=== PATIENT | male | born 1945 | race Caucasian/White ===

== ENCOUNTER 2016-08-25 08:28 | Emergency (ER) | payer MEDICARE ==
[2016-08-25 08:32] VITALS: BP 136/69
[2016-08-25] MEDS ORDERED: Ibuprofen TAB* 800 MG PO ONE (09:05)
[2016-08-25] MEDS ORDERED: Cyclobenzaprine TAB* 10 MG PO ONE (09:06)
--- NOTE | 2016-08-25 09:16 | ED ---
Upper Extremity Pain - HPI Summary HPI Summary: Pt here with acute on chronic Rt shoulder pain. H/o [place] [address] Flores. Had a repeat surgery after. Has had chronic pain here. 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 He enjoys wood working but denies overuse as welll as recent injury, fall, etc. Notes he was simply sitting watching TV when he noticed his Rt side spasming from his neck to his wrist. Denies numbness, tingling, weakness but hurts worse w/ elbow flexion and shoulder abduction/flexion. Tried 400mg ibuprofen at 400 today w/ no relief. Denies fever, chills, [place], neck pain, N/V/D, CP, SOB. Eating and drinking well. Reports he had a routine check up with PCP recently and was told everything looks good. - History of Current Complaint Chief Complaint: EDExtremityUpper Stated Complaint: RIGHT SHOULDER INJURY Time Seen by Provider: 08/25/16 08:47 Hx Obtained From: Patient, Family/Absorption Operator - female family member - Allergies/Home Medications Allergies/Adverse Reactions: Allergies Allergy/AdvReac Type Severity Reaction Status Date / Time Sulfa Drugs Allergy Unknown Unknown Verified 07/14/13 14:34 Reaction Details Home Medications: Home Medications Aspirin EC Low Dose* [Ecotrin EC Low Dose 81 MG*] 81 mg PO DAILY 08/25/16 [ History Confirmed 08/25/16] Atenolol TAB* [Tenormin TAB* 25 MG] 25 mg PO DAILY 08/25/16 [History Confirmed 08/25/16] Atorvastatin* [Lipitor*] 40 mg PO DAILY 08/25/16 [History Confirmed 08/25/16] Ibuprofen TAB* [Advil TAB*] 400 mg PO Q6H PRN 08/25/16 [History Confirmed ] Ramipril CAP* [Altace CAP*] 5 mg PO DAILY 08/25/16 [History Confirmed 08/25/16] PMH/Surg Hx/FS Hx/Imm Hx Previously Healthy: Yes Endocrine/Hematology History: Denies: Hx Anticoagulant Therapy, Hx Blood Disorders, Hx Diabetes, Hx Thyroid Disease Cardiovascular History: Reports: Hx Hypercholesterolemia - controlled on statin , Hx Hypertension - controlled on atenolol, ramipril, Other Cardiovascular Problems/Disorders - CABG 2003 Denies: Hx Congestive Heart Failure Respiratory History: Denies: Hx Asthma, Hx Chronic Obstructive Pulmonary Disease (COPD) GI History: Denies: Hx Ulcer Musculoskeletal History: Reports: Hx Joint Replacement - Rt shoulder w/ [place] 2004 - chronic pain (lives with it), Other Musculoskeletal History - poor balance in wheel chair Neurological History: Reports: Other Neuro Impairments/Disorders - brain surgery wheelchair bound poor balance - Surgical History Surgery Procedure, Year, and Place: CABG 2003 ([place]), BRAIN ANUERYSM w/ surgery,. R shoulder replacement 2004 ([place]). Infectious Disease History: No Infectious Disease History: Denies: Traveled Outside the [place] in Last 30 Days - Family History Known Family History: Positive: None - Social History Lives: Alone - assisted living Alcohol Use: Daily Alcohol Amount: 1 Glass of wine w/ dinner Hx Substance Use: No Substance Use Type: Reports: None Hx Tobacco Use: No Smoking Status (MU): Never Smoked Tobacco Review of Systems Constitutional: Negative Positive: Fatigue - chronic - nothing new today. Negative: Fever, Chills ENT: Negative Negative: Dental Pain Cardiovascular: Negative Negative: Palpitations, Chest Pain Respiratory: Negative Negative: Shortness Of Breath, Cough Gastrointestinal: Negative Negative: Abdominal Pain, Vomiting, Diarrhea, Nausea Positive: no symptoms reported Musculoskeletal: Other - see HPI Skin: Negative Negative: Rash, Bruising Neurological: Negative Positive: Weakness - Lt arm d/t aneurysm (chronic). Negative: Headache, Paresthesia, Numbness Psychological: Normal All Other Systems Reviewed And Are Negative: Yes Physical Exam Triage Information Reviewed: Yes Vital Signs On Initial Exam: Initial Vitals Temp Pulse Resp BP Pulse Ox 97.1 F 63 18 136/69 99 08/25/16 08:28 08/25/16 08:28 08/25/16 08:28 08/25/16 08:28 08/25/16 08:28 Vital Signs Reviewed: Yes Appearance: Positive: Well-Appearing, No Pain Distress, Well-Nourished Skin: Positive: Warm, Dry - no erythema, no ecchymosis, no lesions over affected area Head/Face: Positive: Normal Head/Face Inspection ENT: Positive: Hearing grossly normal, Pharynx normal Neck: Positive: Other: - Rt sided trap m hypertonic, TTP Respiratory/Lung Sounds: Positive: Clear to Auscultation, Breath Sounds Present. Negative: Decreased Breath Sounds, Rales, Rhonchi, Stridor, Wheezes Cardiovascular: Positive: Normal, RRR, Pulses are Symmetrical in both Upper and Lower Extremities, S1, S2. Negative: Leg Edema Left, Leg Edema Right Abdomen Description: Positive: Nontender, Soft Bowel Sounds: Positive: Present Musculoskeletal: Positive: Strength/ROM Intact - fingers, wrist, elbow (note: pain w/ elbow flexion), Limited @, Pain @ - Rt shoulder muscle tissue is hypertonic and TTP but pt reports pain is more internal - pain worse w/ shoulder flexion/abduction Neurological: Positive: Normal, Sensory/Motor Intact - NOTE: somewhat delayed coordination w/ Lt UE, Alert, Oriented to Person Place, Time Psychiatric: Positive: Normal Diagnostics - Vital Signs Vital Signs Temp Pulse Resp BP Pulse Ox 08/25/16 08:32 97.1 F 63 18 136/69 99 08/25/16 08:28 97.1 F 63 18 136/69 99 - Laboratory Result Diagrams: 08/25/16 10:50 Lab Statement: Any lab studies that have been ordered have been reviewed, and results considered in the medical decision making process. Re-Evaluation - Re-Evaluation First Eval Change: Improved - muscle spasm and pain at rest improved however still has pain w/ movement - will try acetaminophen Second Eval Change: Unchanged - no change - will try morphine IV Third Eval Change: Unchanged - as pt is more comfortable than when he arrived and has had some relief, will d/c w/ norco PO, muscle relaxers and sling for support - advised to f/u w/ ortho in next 2 days Course/Dx - Course Course Of Treatment: Pt presents w/ acute on chronic Rt shoulder pain. 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 Pain is w/ trying to move shoulder into flexion/abduction and w/ elbow flexion. Reports pain is within shoulder and into biceps. He is concerned about not being able to feed himself at home as he lives alone and has pre- existing Lt sided weakness as the result of previous brain aneurysm. SPoke w/ family and social work who have arranged home health care consult. Family will help pt over the next couple of days to bridge the gap. SPoke w/ Dr. Negrete who will see pt - pt to call. - Diagnoses Provider Diagnoses: Biceps tendonosis of right shoulder, Acute pain of right shoulder - Physician Notifications Discussed Care of Patient With: Dr. Negrete Discharge - Discharge Plan Condition: Stable Disposition: HOME Prescriptions: Cyclobenzaprine TAB* [Flexeril 10 MG TAB*] 10 mg PO TID PRN #15 tab PRN Reason: Pain HYDROcodone/ACETAMIN 5-325 MG* [[place] 5-325 TAB*] 1 tab PO Q6H PRN #20 tab MDD 4 PRN Reason: Pain Patient Education Materials: Tendinitis (ED) Referrals: Leora Negrete MD [Medical Doctor] - Additional Instructions: You may elevate your arm in a sling to reduce stress/strain on muscles here. Ice alternating with heat compress You may take ibuprofen 600mg every 6 hours with food alternating with acetaminophen 650mg every 6 hours. Additionally, you may take norco and flexeril for breakthrough pain. Follow-up with orthopedics this week - call today to schedule appointment with Dr. Negrete *If you develop redness, swelling, weakness, fever, return to ED
--- NOTE | 2016-08-25 09:52 | RAD ---
Indication: Right shoulder pain 4 views of the right shoulder demonstrates right shoulder replacement. No periprosthetic fracture is noted. There may be erosion and remodeling of the glenoid which is progressive since 2004. IMPRESSION: No evidence of periprosthetic fracture of the right humerus is noted. There appears to be remodeling of the glenoid which has progressed since June 18, 2004.
[2016-08-25] MEDS ORDERED: Acetaminophen TAB* 325 MG PO ONE (10:10)
[2016-08-25 10:54] LABS: Hematocrit 48 % (42-52); Hemoglobin 16.2 g/dl (14.0-18.0); Mean Corpuscular HGB Conc 34 g/dl (31-36); Mean Corpuscular Hemoglobin 32 pg (27-31); Mean Corpuscular Volume 93 fL (80-94); Mean Platelet Volume 8 um3 (7.4-10.4); Red Blood Count 5.12 10^6/ul (4.0-5.4); Red Cell Distribution Width 13 % (10.5-15); White Blood Count 12.3 10^3/ul (3.5-10.8)
--- NOTE | 2016-08-25 11:03 | RAD ---
Indication: Acute on chronic RIGHT shoulder pain. Total joint replacement in 2015. Comparison: August 25, 2016 radiographs Technique: Noncontrast CT RIGHT shoulder. Multiplanar reformation. Report: Normal acromioclavicular joint alignment. Mild osteophytosis and subchondral sclerosis and cystic change at the AC joint. Concave undersurface of the acromion process with small inferior acromial bone spur as well as sclerosis and cystic change. Prosthetic humeral head without evidence for loosening or periprosthetic fracture. Advanced remodeling of the [place] glenoid reflecting the shape of the humeral head prosthesis. No fracture evident. While detail is limited due to artifact from the humeral head prosthesis no significant atrophy of the rotator cuff musculature is appreciated. Dystrophic calcification noted along the proximal segment of the coracobrachialis and short head of the biceps extending caudal from the coracoid process. IMPRESSION: 1. No evidence for fracture, articular malalignment, or prosthesis loosening. 2. Advanced remodeling of the [place] glenoid reflecting the shape of the humeral head prosthesis. 3. Mild AC joint osteoarthritis and small inferior acromial bone spur. 4. Dystrophic calcification noted along the proximal segment of the coracobrachialis and short head of the biceps extending caudal from the coracoid process.
[2016-08-25] MEDS ORDERED: Morphine INJ* 4 MG/ML 1 ML SYRINGE IV ONE (11:27)
[2016-08-25] MEDS ORDERED: Ondansetron INJ* 2 MG/ML VIAL IV ONE (11:27)
== END 2016-08-25 12:47 | disposition home or self-care (01) ==
LOC: ED 08:28
DX: M75.21 Bicipital tendinitis, right shoulder (principal); M25.511 Pain in right shoulder
CPT/HCPCS: 36415; 83605; 85025; 86140; 99283; A9270-GY; J2270; J2405

== ENCOUNTER 2016-09-25 11:36 | Emergency (ER) | payer MEDICARE ==
--- NOTE | 2016-09-25 12:32 | ED ---
Upper Extremity Pain - HPI Summary HPI Summary: 70 male presents with complaints right shoulder pain that has been ongoing for years however has been worse over the past couple of days. Patient states he has had multiple surgeries on his shoulder and is due for another October 28 with [facility] due to "not having any bone left". Patient and daughter states he thinks he overused it over the past couple of days and is the cause of his increased pain. Takes oxycodone at home for pain and ast dose was around 6 am with minimal relief. He is strictly here for pain management. Was unable to get into pain clinic until Next wednesday. Patient denies any new injury or trauma. No numbness or tingling. No weakness, pallor or paralysis. No other complaints or injuries, pain does not radiate. - History of Current Complaint Chief Complaint: EDExtremityUpper Stated Complaint: RT SHOULDER PAIN Hx Obtained From: Patient, Family/Dairy Department Manager - daughter Mechanism Of Injury: Unknown - chornic shoulder injury/pain Onset/Duration: Started Weeks Ago - chronic, Still Present, Worse Since Timing: Constant Severity Initially: Moderate Severity Currently: Severe Pain Location: Shoulder - right Character: Sharp, Aching, Throbbing Aggravating Factor(s): Movement Alleviating Factor(s): Rest Associated Signs & Symptoms: Negative: Swelling, Redness, Weakness, Numbness/ Tingling, Back Pain Related History: Dominant Hand Right - Risk Factors DVT Risk Factors: Negative Septic Arthritis Risk Factor: Negative Compartment Syndrome Risk Factors: Pain - Allergies/Home Medications Allergies/Adverse Reactions: Allergies Allergy/AdvReac Type Severity Reaction Status Date / Time Sulfa Drugs Allergy Unknown Unknown Verified 09/16/16 13:57 Reaction Details PMH/Surg Hx/FS Hx/Imm Hx Endocrine/Hematology History: Denies: Hx Anticoagulant Therapy, Hx Blood Disorders, Hx Diabetes, Hx Thyroid Disease Cardiovascular History: Reports: Hx Hypercholesterolemia - controlled on statin , Hx Hypertension - controlled on atenolol, ramipril, Other Cardiovascular Problems/Disorders - CABG 2003 Denies: Hx Congestive Heart Failure Respiratory History: Denies: Hx Asthma, Hx Chronic Obstructive Pulmonary Disease (COPD) GI History: Denies: Hx Ulcer Musculoskeletal History: Reports: Hx Arthritis, Other Musculoskeletal History - poor balance in wheel chair Neurological History: Reports: Other Neuro Impairments/Disorders - brain surgery wheelchair bound poor balance - Surgical History Surgery Procedure, Year, and Place: CABG 2003 ([place]), BRAIN ANUERYSM w/ surgery,. R shoulder replacement 2004 ([place]). Infectious Disease History: No Infectious Disease History: Denies: Traveled Outside the [place] in Last 30 Days - Family History Known Family History: Positive: None - Social History Alcohol Use: Occasionally Alcohol Amount: 1 Glass of wine w/ dinner Hx Substance Use: No Substance Use Type: Reports: None Hx Tobacco Use: No Smoking Status (MU): Former Smoker Have You Smoked in the Last Year: No Review of Systems Constitutional: Negative Cardiovascular: Negative Respiratory: Negative Gastrointestinal: Negative Positive: Arthralgia - right shoulder , Myalgia, Decreased ROM, Edema Skin: Negative Neurological: Negative All Other Systems Reviewed And Are Negative: Yes Physical Exam Triage Information Reviewed: Yes Vital Signs On Initial Exam: Initial Vitals Temp Pulse Resp BP Pulse Ox 98.3 F 68 20 109/61 96 09/25/16 11:39 09/25/16 11:39 09/25/16 11:39 09/25/16 11:39 09/25/16 11:39 Vital Signs Reviewed: Yes Appearance: Positive: Well-Appearing, Well-Nourished, Pain Distress - moderate with movement and at rest however more with movement Skin: Positive: Warm, Skin Color Reflects Adequate Perfusion, Dry. Negative: Cold, Numb, Cyanosis @, Diaphoretic, Pale Head/Face: Positive: Normal Head/Face Inspection Eyes: Positive: Conjunctiva Clear ENT: Positive: Hearing grossly normal Neck: Positive: Supple, Nontender Respiratory/Lung Sounds: Positive: Clear to Auscultation, Breath Sounds Present. Negative: Rales, Rhonchi, Wheezes Cardiovascular: Positive: Normal, RRR, Pulses are Symmetrical in both Upper and Lower Extremities - 2+ radial b/l. Negative: Murmur, Rub, Leg Edema Left, Leg Edema Right Bowel Sounds: Positive: Present Musculoskeletal: Positive: Strength/ROM Intact - strength intact all extremities , Limited @ - right shoulder with any direction due to pain, even with passive ROM. rest of MSK exam was normal, Pain @ - right shoulder on palpation and movement. Negative: Edema Left, Edema Right Neurological: Positive: Normal, Sensory/Motor Intact - sensation intact, Alert, Oriented to Person Place, Time, CN Intact II-III, Reflexes Intact, NV Bundle Intact Distally Psychiatric: Positive: Affect/Mood Appropriate Diagnostics - Vital Signs Vital Signs Temp Pulse Resp BP Pulse Ox 09/25/16 11:55 98.3 F 68 20 109/61 96 09/25/16 11:39 98.3 F 68 20 109/61 96 - Laboratory Lab Statement: Any lab studies that have been ordered have been reviewed, and results considered in the medical decision making process. Re-Evaluation - Re-Evaluation First Eval Re-Evaluation Time: 13:30 Change: Improved - had relief from medications, ready to be d/c Course/Dx - Course Course Of Treatment: due to patient's chronic pain and injury to shoulder no x- ray was obtained. also no new/recent trauma or injury. tried to control pain with lidoderm patch, toradol and decadron. patient did have relief. understands limited options. told to apply heat/ice while at home, rest and do not overuse. follow up with ortho and pain clinic. given prednisone short course for 5 days. no kidney disease or diabetes history. told to continue lidoderm if used properly while at home and if gives relief. continue prescribed pain medication. aware of worsening signs and symptoms. heat/ice. no concern for any other etiology at this time. appeared comfortable and pleasant. - Diagnoses Differential Diagnosis/HQI/PQRI: Positive: Arthritis, Contusion, Strain, Sprain , Other - chronic shoulder pain/injury Provider Diagnoses: Chronic right shoulder pain Discharge - Discharge Plan Condition: Stable Disposition: HOME Prescriptions: Ibuprofen TAB* [Motrin TAB* 600 MG] 600 mg PO Q8H PRN #20 tab PRN Reason: Pain predniSONE TAB* [Deltasone TAB*] 40 mg PO DAILY #10 tab Patient Education Materials: Arthralgia (ED), Shoulder Pain (ED) Referrals: Nickolas Dominguez MD [Primary Care Provider] - Additional Instructions: Take pain medication as directed at home. Try taking ibuprofen only as needed in between doses, with food and drink plenty of fluids. Try using lidoderm patches and remove them after 12 hours. Follow up with pain clinic and orthopedic doctor. Rest and refrain form using your shoulder.
[2016-09-25] MEDS ORDERED: Ketorolac INJ* 60 MG/2 ML VIAL IM ONE (12:40)
[2016-09-25] MEDS ORDERED: Dexamethasone IV* 4 MG/ML 1 ML (4 MG) IM ONE (13:34)
[2016-09-25] MEDS ORDERED: Lidocaine PATCH 5%* 1 PATCH ONE (13:47)
[2016-09-25] MEDS ORDERED: Lidocaine PATCH 5%* 1 PATCH TRANSDERM SCH (14:00)
[2016-09-25 14:49] VITALS: BP 120/65
[2016-09-25] MEDS ORDERED: Lidocaine Patch REMOVE* 1 NOTE MISC SCH (21:00)
== END 2016-09-25 14:47 | disposition home or self-care (01) ==
LOC: ED 11:36
DX: M25.511 Pain in right shoulder (principal); G89.29 Other chronic pain
CPT/HCPCS: 96372; 99282; A9270-GY; J1100; J1885

== ENCOUNTER → 2018-07-22 10:29 | Day surgery (SDC) | payer MEDICARE ==
[~2018-07-22 10:29] MED LIST: Buffered Lidocaine 1% SYRIN* 1 ML/SYRINGE INTRADERM ONE; Lactated Ringers 1000 ML Bag* 1,000 ML IV SCH; Midazolam* 1 MG/ML 2 ML VIAL (2 MG) ONE; Propofol* 10 MG/ML 20 ML BTL ONE; fentaNYL* 50 MCG/ML 2 ML VIAL (100 MCG VIAL) ONE
[2018-07-22 14:04] VITALS: BP 160/60
--- NOTE | 2018-07-22 20:49 | PRO ---
CC: Dr. Nickolas Dominguez * DATE OF PROCEDURE: 07/22/18 - [facility] PHYSICIAN: Dr. Nickolas Dominguez. INDICATION FOR PROCEDURE: Constipation, rectal bleeding. PROCEDURE PERFORMED: Complete colonoscopy to the cecum with biopsy polypectomy x5. MEDICATIONS GIVEN: Please see anesthesia record. DESCRIPTION OF PROCEDURE: After the colonoscopy procedure including the risks, benefits, and alternatives with the risks not limited to perforation, surgery, missed lesions, and/or were explained to the patient, written informed consent was obtained, IV medication was given, and the rectal exam was performed. The rectal exam revealed palpable internal hemorrhoids. The adult Olympus colonoscope was then inserted into the patient's rectum and advanced very carefully through the entirety of the colon into the cecal base. The cecal base was carefully inspected and was normal in appearance. The preparation initially was fairly poor on the right side; however, I was able to wash it to fair. A photograph was taken of the cecal cap. The terminal ileal valve was identified and normal in appearance. Over the next 7 minutes, the scope was carefully withdrawn inspecting the mucosa. In the ascending colon, a small polyp was removed with biopsy polypectomy in the entirety. In the descending colon, 2 additional polyps removed with biopsy polypectomy in the entirety, and finally in the rectum, 2 polyps removed with biopsy polypectomy in the entirety. On retroflexion, the aforementioned grade 2 internal hemorrhoids were appreciated. The scope was then removed from the patient. He tolerated the procedure well. He returned to the recovery room in stable condition. IMPRESSION: 1. Complete colonoscopy to the cecum. 2. Fair preparation. 3. Biopsy polypectomy x5 as above. 4. Grade 2 internal hemorrhoids. RECOMMENDATIONS: Continue with high-fiber diet. Metamucil or Citrucel will be beneficial to keep these hemorrhoids in check and would recommend a repeat colonoscopy in 3 to 5 years pending pathology. [id number]/[facility] #: [id number] [facility]
== END | disposition home or self-care (01) ==
LOC: OR 10:29
PROVIDERS: ATTEND Internal Medicine Gastroenterology
DX: K62.5 Hemorrhage of anus and rectum (principal); K59.00 Constipation, unspecified; K63.5 Polyp of colon; K62.1 Rectal polyp; K64.8 Other hemorrhoids; Z86.010 Personal history of colon polyps; E66.9 Obesity, unspecified; I10 Essential (primary) hypertension; E78.5 Hyperlipidemia, unspecified; Z95.1 Presence of aortocoronary bypass graft; Z87.891 Personal history of nicotine dependence; Z86.73 Personal history of transient ischemic attack (TIA), and cerebral infarction without residual deficits
CPT/HCPCS: 88305; J2250; J2704; J3010